=== PATIENT | female | born 1990 | race Caucasian/White ===

== ENCOUNTER 2016-11-10 15:18 | Inpatient (IN) | payer OTHER ==
[~2016-11-10] VITALS: Ht 150 cm; Wt 59.4 kg
[2016-11-10] MEDS ORDERED: PREN1TAB80 PO (15:23)
[2016-11-10] MEDS ORDERED: LEVO100 PO (15:23)
[2016-11-10] MEDS ORDERED: AMOX500T2 PO (15:29)
[2016-11-10] MEDS ORDERED: RINGERS SOLUTION,LACTATED 1,000 ML IV PRN ×2 (16:16→23:32)
[2016-11-10 16:46] VITALS: BP 104/61
[2016-11-10 16:51] LABS: BASOPHILS % (AUTO) 0.3 % (0.0-2.0); EOSINOPHILS % (AUTO) 1.3 % (1.0-6.0); HEMATOCRIT 32.1 % (36-46); HEMOGLOBIN 10.4 g/dL (12.0-16.0); LYMPHOCYTES # (AUTO) 1.4 K/uL (1.0-4.8); LYMPHOCYTES % (AUTO) 16.4 % (22.0-44.0); MEAN CORPUSCULAR HEMOGLOBIN 29.2 pg (26.0-34.0); MEAN CORPUSCULAR HGB CONC 32.4 G/dL (31.0-37.0); MEAN CORPUSCULAR VOLUME 90 fL (80-100); MONOCYTES # (AUTO) 0.6 K/uL (0.1-1.0); MONOCYTES % (AUTO) 7.2 % (2.0-9.0); NEUTROPHILS # (AUTO) 6.4 K/uL (1.8-7.7); NEUTROPHILS % (AUTO) 74.8 % (40.0-70.0); RED BLOOD CELL COUNT(AUTO) 3.56 MIL/uL (4.00-5.20); WHITE BLOOD COUNT (AUTO) 8.5 K/uL (4.5-11.0)
[2016-11-10] MEDS ORDERED: RINGERS SOLUTION,LACTATED 1,000 ML IV SCH (17:00)
[2016-11-10] MEDS ORDERED: OXYTOCIN 30 UNITS/LACT RINGERS 500 ML IV PRN (23:32)
[2016-11-10] MEDS ORDERED: AMPICILLIN SODIUM 2 GM/NS 100 ML IV ONE (23:45)
[2016-11-10] MEDS ORDERED: METOCLOPRAMIDE HCL 5 MG/ML 2 ML VIAL IVP PRN (23:45)
[2016-11-10] MEDS ORDERED: CITRIC ACID/SODIUM CITRATE 30 ML SOLUTION UDCUP PO PRN (23:45)
[2016-11-11] MEDS: RINGERS SOLUTION,LACTATED 1,000 ML IV SCH ×2 (00:14→06:22)
[2016-11-11 01:44] VITALS: BP 116/55
[2016-11-11] MEDS: AMPICILLIN SODIUM 1 GM/NS 50 ML IV SCH ×2 (04:05→08:04)
[2016-11-11] MEDS ORDERED: EPHEDrine SULFATE 50 MG/ML VIAL IM ONE (04:32)
[2016-11-11] MEDS ORDERED: ONDANSETRON HCL 4 MG/2 ML VIAL IVP ONE (04:32)
[2016-11-11] MEDS ORDERED: 0.9% SODIUM CHLORIDE 10 ML VIAL IVP ONE (04:32)
[2016-11-11] MEDS ORDERED: PHENYLEPHRINE HCL 10 MG/ML VIAL IVP ONE (04:32)
[2016-11-11] MEDS ORDERED: OXYTOCIN 10 UNITS/ML VIAL IM ONE (04:32)
[2016-11-11] MEDS ORDERED: FentaNYL/BUPIV 0.125%/NS/PF 200 ML ED ONE (05:49)
[2016-11-11] MEDS: FentaNYL CITRATE-PF 100 MCG/2 ML VIAL IVP PRN ×3 (06:18→08:06)
[2016-11-11] MEDS ORDERED: ACETAMINOPHEN 1000 MG/ISO-OSM 100 ML IV ONE (06:47)
[2016-11-11] MEDS ORDERED: OXYGEN THERAPY IH SCH ×4 (08:00→20:00)
[2016-11-11] MEDS ORDERED: MORPHINE SULFATE/PF 0.5 MG/ML 10 ML AMP ONE (08:11)
[2016-11-11] MEDS ORDERED: FentaNYL CITRATE-PF 100 MCG/2 ML VIAL ONE (08:11)
[2016-11-11] MEDS ORDERED: CeFAZolin 2 GM/DEXTROSE 50 ML IV ONE (08:11)
[2016-11-11] MEDS ORDERED: RINGERS SOLUTION,LACTATED 1,000 ML IV ONE (08:11)
[2016-11-11] MEDS ORDERED: MIDAZOLAM HCL 2 MG/2 ML VIAL ONE (08:46)
[2016-11-11] MEDS ORDERED: NALBUPHINE HCL 10 MG/ML VIAL IVP PRN ×3 (09:30)
[2016-11-11] MEDS ORDERED: MORPHINE SULFATE 10 MG/ML SYRINGE IVP PRN (09:30)
[2016-11-11] MEDS ORDERED: ONDANSETRON HCL 4 MG/2 ML VIAL IVP PRN ×2 (09:30)
[2016-11-11] MEDS ORDERED: NALOXONE HCL 0.4 MG/ML VIAL IVP PRN (09:30)
[2016-11-11] MEDS ORDERED: DiphenhydrAMINE HCL 50 MG/ML VIAL IVP PRN ×2 (09:30)
[2016-11-11] MEDS ORDERED: FentaNYL CITRATE-PF 100 MCG/2 ML VIAL IVP PRN ×2 (09:30)
[2016-11-11] MEDS ORDERED: LANOLIN 7 GM OINTMENT TP PRN (10:15)
[2016-11-11] MEDS ORDERED: ACETAMINOPHEN/CODEINE 300-30 MG TABLET PO PRN ×2 (10:15)
[2016-11-11] MEDS ORDERED: NALBUPHINE HCL 10 MG/ML VIAL ONE (11:12)
[2016-11-11] MEDS: ACETAMINOPHEN 1000 MG/ISO-OSM 100 ML IV SCH ×2 (13:22→19:36)
[2016-11-11] MEDS: KETOROLAC TROMETHAMINE 30 MG/ML VIAL IVP SCH ×2 (16:01→23:59)
[2016-11-11] MEDS: DEXTROSE 5%-0.45% SODIUM CHL 1,000 ML IV SCH ×2 (16:01→19:35)
[2016-11-11] MEDS ORDERED: LEVOTHYROXINE SODIUM 100 MCG TABLET PO SCH (21:15)
[2016-11-12] MEDS: DEXTROSE 5%-0.45% SODIUM CHL 1,000 ML IV SCH ×2 (00:50→04:57)
[2016-11-12] MEDS: ACETAMINOPHEN 1000 MG/ISO-OSM 100 ML IV SCH ×2 (01:27→07:04)
[2016-11-12] MEDS ORDERED: DEXTROSE 5%-0.45% SODIUM CHL 1,000 ML IV ONE (04:55)
[2016-11-12] MEDS: LEVOTHYROXINE SODIUM 100 MCG TABLET PO SCH (08:07)
[2016-11-12] MEDS: KETOROLAC TROMETHAMINE 30 MG/ML VIAL IVP SCH (08:08)
[2016-11-12] MEDS: MAGNESIUM HYDROXIDE SUSPENSION 30 ML UDCUP PO SCH ×2 (08:08→21:00)
[2016-11-12] MEDS: IBUPROFEN 800 MG TABLET PO SCH ×2 (12:05→17:54)
[2016-11-12 14:33] LABS: BASOPHILS # (AUTO) 0.01 K/uL (0.00-0.20); BASOPHILS % (AUTO) 0.1 % (0.0-2.0); EOSINOPHILS # (AUTO) 0.09 K/uL (0.00-0.70); EOSINOPHILS % (AUTO) 0.65 % (1.0-6.0); HEMATOCRIT 25.9 % (36-46); HEMOGLOBIN 8.6 g/dL (12.0-16.0); LYMPHOCYTES % (AUTO) 7.3 % (22.0-44.0); MEAN CORPUSCULAR HGB CONC 33.3 G/dL (31.0-37.0); MEAN CORPUSCULAR VOLUME 90 fL (80-100); MONOCYTES # (AUTO) 0.7 K/uL (0.1-1.0); MONOCYTES % (AUTO) 5.5 % (2.0-9.0); NEUTROPHILS # (AUTO) 11.3 K/uL (1.8-7.7); RED BLOOD CELL COUNT(AUTO) 2.88 MIL/uL (4.00-5.20); RED CELL DISTRIBUTION WIDTH 13.5 % (11.5-14.5); WHITE BLOOD COUNT (AUTO) 13.1 K/uL (4.5-11.0)
[2016-11-12 14:37] LABS: NEUTROPHILS % (AUTO) 86.5 % (40.0-70.0)
[2016-11-12] MEDS: SIMETHICONE 80 MG CHEWABLE TABLET CHEW PRN (18:28)
[2016-11-13] MEDS: IBUPROFEN 800 MG TABLET PO SCH ×4 (00:10→17:56)
[2016-11-13] MEDS: SIMETHICONE 80 MG CHEWABLE TABLET CHEW PRN ×2 (00:11→08:36)
[2016-11-13] MEDS: MAGNESIUM HYDROXIDE SUSPENSION 30 ML UDCUP PO SCH ×2 (08:36→21:31)
[2016-11-14] MEDS: IBUPROFEN 800 MG TABLET PO SCH (01:46)
[2016-11-14] MEDS: LEVOTHYROXINE SODIUM 100 MCG TABLET PO SCH (06:32)
[2016-11-14] MEDS ORDERED: ACET1TAB12 PO (09:52)
[2016-11-14] MEDS ORDERED: IBUP-1547 PO (09:53)
[2016-11-14] MEDS ORDERED: DSS100 PO (09:53)
[2016-11-14] MEDS ORDERED: FERS325 PO (09:54)
== END 2016-11-14 11:00 | disposition home or self-care (01) | DRG 766 ==
LOC: 4S 15:18 → OBSVTOIN 15:18 → 4S 11-11 14:05
PROVIDERS: ADMIT Obstetrics & Gynecology; ATTEND Obstetrics & Gynecology
PROC: 10D00Z1 Extraction of Products of Conception, Low, Open Approach (ICD-10-PCS; principal; 2016-11-11)
PROC: 10907ZC Drainage of Amniotic Fluid, Therapeutic from Products of Conception, Via Natural or Artificial Opening (ICD-10-PCS; 2016-11-11)
DX: O99.284 Endocrine, nutritional and metabolic diseases complicating childbirth (principal); O61.8 Other failed induction of labor; E03.9 Hypothyroidism, unspecified; Z37.0 Single live birth; Z3A.37 37 weeks gestation of pregnancy; Z91.02 Food additives allergy status; Z90.49 Acquired absence of other specified parts of digestive tract
CPT/HCPCS: J0131; J0290; J0690; J1885; J2250; J2274; J2300; J2370; J2405; J2590; J2765; J3010; J3490; J7120